=== PATIENT | female | born 1955 | race African-American/Black ===

== ENCOUNTER 2017-08-24 14:05 | Emergency (ER) | payer OTHER ==
[~2017-08-24] VITALS: Ht 157.5 cm; Wt 99.8 kg
[~2017-08-24 14:05] MED LIST: ALBUTEROL0.63 MG/3; AMOX1TAB12 PO; AMOX1TAB5 PO; ATROVENT 00.5 MG/2.5 IH; BACLOFEN20 MG; CLEOCIN HCL300 MG; DOLOGESIC CAPSU1 CAP PO; KETO10TA2 PO; LOSARTAN POTASS50 MG; METOCLOPRAMIDE10 MG; MOTRIN IB200 MG; MOTRIN800 MG PO; MUPIROCIN15 GM; ORPH100T PO; RIOMET500 MG/5 M; SINGULAIR10 MG PO; VASOTEC20 M1; VISTARIL50 MG/ML
== END 2017-08-25 11:03 | disposition designated cancer center or children's hospital (05) ==
LOC: ER 14:05
DX: J45.41 Moderate persistent asthma with (acute) exacerbation (principal)